=== PATIENT | male | born 1990 | race Caucasian/White ===

== ENCOUNTER 2023-12-01 00:49 | Emergency (ER) | payer BC ==
[~2023-12-01] VITALS: Ht 180.3 cm; Wt 99.8 kg
[2023-12-01 00:49] VITALS: BP 135/91; PULSE 91; RESP 17; TEMP 97.9; O2SAT 100
[2023-12-01 02:05] LABS: BASOPHILS % (AUTO) 0.4 % (0.0-2.0); EOSINOPHILS # (AUTO) 0.3 K/uL (0-0.4); EOSINOPHILS % (AUTO) 3.4 % (0.0-4.0); HEMATOCRIT 44.7 % (36-52); HEMOGLOBIN 15.4 g/dL (12.0-18.0); LYMPHOCYTES # (AUTO) 3.6 K/uL (2.0-11.5); LYMPHOCYTES % (AUTO) 37.2 % (20.5-51.1); MEAN CORPUSCULAR HEMOGLOBIN 31 pg (27-31); MEAN CORPUSCULAR HGB CONC 35 g/dL (33-37); MEAN CORPUSCULAR VOLUME 88.8 fL (80-94); MONOCYTES # (AUTO) 0.9 K/uL (0.8-1.0); NEUTROPHILS # (AUTO) 4.8 K/uL (1.8-7.7); PLATELET COUNT (AUTO) 229 K/uL (140-450); RED BLOOD CELL COUNT(AUTO) 5.04 MIL/uL (4.20-6.10); RED CELL DISTRIBUTION WIDTH 12.8 % (11.6-13.7); WHITE BLOOD COUNT (AUTO) 9.6 K/uL (4.8-10.8)
[2023-12-01 02:30] LABS: INR 1.07 (0.8-1.2); PARTIAL THROMBOPLASTIN TIME 27.9 secs (22-35.6); PROTHROMBIN TIME 11.2 secs (10.8-13.4)
[2023-12-01 02:50] LABS: ANION GAP 13.2 (8-16); CARBON DIOXIDE 26.2 mmol/L (21-32); POTASSIUM 3.4 mmol/L (3.5-5.1)
[2023-12-01] MEDS: ACETAMINOPHEN EXTRA STRENGTH 500 MG TAB PO ONE (05:09)
[2023-12-01] MEDS: IBUPROFEN 400 MG TAB PO ONE (05:10)
[2023-12-01 05:13] VITALS: BP 116/65; PULSE 78; RESP 15; TEMP 98.1; O2SAT 99
== END 2023-12-01 05:10 | disposition home or self-care (01) ==
LOC: MED 00:49
DX: R07.9 Chest pain, unspecified (principal); R00.2 Palpitations; Z79.899 Other long term (current) drug therapy
CPT/HCPCS: 36415; 71045; 80048; 83880; 84484; 85025; 85610; 85730; 93005; 99285; Q0092